=== PATIENT | female | born 1955 | race Caucasian/White ===

== ENCOUNTER 2017-05-17 13:50 | Outpatient (CLI) | payer OTHER | END 2017-05-17 13:51 | disposition home or self-care (01) | LOC: BICMAMMO 13:50 | PROVIDERS: ATTEND Internal Medicine | DX: Z12.31 Encounter for screening mammogram for malignant neoplasm of breast (principal) | CPT/HCPCS: 77063; 77067 ==

== ENCOUNTER 2017-06-10 15:54 | Outpatient (CLI) | payer OTHER ==
--- NOTE | 2017-06-10 16:34 | ULT ---
ULTRASOUND EVALUATION OF THE RIGHT INGUINAL REGION: INDICATION: Right inguinal palpable abnormality that comes and goes. The patient could not currently feel it at the time of the examination. FINDINGS: Ultrasound examination of the right inguinal region demonstrates no enlarged lymph nodes or soft tiss ue fluid collection. The vasculature within the right inguinal region appears within normal limits o n the kat scale images. IMPRESSION: No soft tissue mass identified. No lymphadenopathy is seen. An unencapsulated lipoma cannot be enti rely excluded within the right inguinal region. These can be poorly discerned on sonographic evaluat ion. If clinically indicated, further evaluation with MRI of the right inguinal region may be helpfu l for further evaluation. POS: [facility]
== END 2017-06-10 15:55 | disposition home or self-care (01) ==
LOC: ULT 15:54
PROVIDERS: ATTEND Internal Medicine
DX: R59.1 Generalized enlarged lymph nodes (principal)
CPT/HCPCS: 76999

== ENCOUNTER 2018-06-17 16:29 | Outpatient (CLI) | payer OTHER ==
--- NOTE | 2018-06-17 17:55 | RAD ---
THREE VIEWS RIGHT HAND: 06/17/18 HISTORY: Arthralgia of hand. AP, lateral, and oblique views right hand obtained. FINDINGS/IMPRESSION: Images demonstrate interphalangeal joint space narrowing involving the PIP and DIP joints of the seco nd, third, fourth and fifth digits. This is compatible with erosive osteoarthritis. POS: [facility]
--- NOTE | 2018-06-17 18:05 | RAD ---
LEFT HAND THREE VIEWS: 06/17/18 HISTORY: Left hand pain. Arthritis. FINDINGS: Significant loss of joint space throughout the interphalangeal joint and first carpometacarpal joint. Osteophytosis and subchondral sclerosis most pronounced at the first carpal metacarpal joint where s ubcortical cystic change is also present. Gull wing deformities involving the articular surfaces most pronounced at the distal interphalangeal joints of the index and middle fingers and the proximal int erphalangeal of the ring finger. Ulnar styloid is intact. No aggressive periarticular erosions are ap parent. Osseous structures are diffusely demineralized. 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 More typical osteoarthritic c hanges of the first carpometacarpal joint. POS: [facility]
== END 2018-06-17 16:30 | disposition home or self-care (01) ==
LOC: BICRAD 16:29
PROVIDERS: ATTEND Internal Medicine
DX: M25.541 Pain in joints of right hand (principal); M25.542 Pain in joints of left hand; M19.042 Primary osteoarthritis, left hand; M18.12 Unilateral primary osteoarthritis of first carpometacarpal joint, left hand; M25.841 Other specified joint disorders, right hand

== ENCOUNTER 2018-07-25 12:31 | Outpatient (CLI) | payer OTHER | END 2018-07-25 12:32 | disposition home or self-care (01) | LOC: ULT 12:31 | PROVIDERS: ATTEND Internal Medicine | DX: R01.1 Cardiac murmur, unspecified (principal); I08.1 Rheumatic disorders of both mitral and tricuspid valves; E78.5 Hyperlipidemia, unspecified; D64.9 Anemia, unspecified | CPT/HCPCS: 36415; 80061; 82607; 82728; 83540; 83550; 84443; 85025; 93306 ==

== ENCOUNTER 2019-05-15 12:47 | Outpatient (CLI) | payer OTHER ==
--- NOTE | 2019-05-15 14:55 | MRI ---
MRI LUMBAR SPINE WITHOUT CONTRAST: HISTORY: M54.16, radiculopathy. COMPARISON: None. FINDINGS: The background marrow signal is normal without marrow infiltrative process. Modic type I end plate c hanges of L4-5. There is intraosseous hemangioma of L4 vertebral body. The aortic contour is nonaneurysmal. No significant perirenal edema. Paraspinal musculature is symm etric. The conus medullaris terminates near the inferior end plate of L1. Levels are as follows: T12-L1: There is a broad-based disk bulge posteriorly. Mild hypertrophic disk arthrosis. There is effacement of the ventral CSF space without cortical abnormality. The spinal canal measures approxim ately 9 mm. L1-2: Mild disk height without significant disk space desiccation. No neural foraminal or spinal ca nal narrowing. L2-3: There is mild disk desiccation. Low-grade circumferential disk bulge. Mild hypertrophic face t arthrosis. Mild bilateral neural foraminal narrowing. L3-4: Mild degenerative disk space height loss. There are large facet osteophytes. Circumferential disk-osteophyte causes moderate to severe left and moderate right neural foraminal narrowing with ab utment of both left exiting traversing nerve roots and a the right traversing nerve root. L4-5: Moderate degenerative disk space height loss. Circumferential disk bulge with central annular fissure. Moderate hypertrophic facet arthrosis. There is moderate to severe right and moderate lef t neural foraminal narrowing with abutment of both exiting nerve roots. There is abutment of the rig ht traversing nerve root. L5-S1: Mild degenerative disk space height loss. Circumferential disk space height loss. Disk nicholas ccation. Circumferential disk bulge causes moderate bilateral neural foraminal narrowing, mild hyper trophic facet arthropathy causing abutment of both the right S1 and left S1 nerve roots. IMPRESSION: 1. Spondylosis as described. 2. No acute fracture of the lumbar spine. POS: [facility]
--- NOTE | 2019-05-15 15:36 | MMO ---
Bilateral MAMMO Bilat Screen [facility]. CLINICAL HISTORY: Patient is 64 years old and is seen for screening. The patient has a history of right Excisional Biopsy in 2006 - benign. VIEWS: The views performed were: . FILMS COMPARED: The present examination has been compared to prior imaging studies performed at [facility] on 05/20/2013, 05/21/2014 and 05/17/2017, and at [facility] on 01/06/2016. This study has been interpreted with the assistance of computer-aided detection. MAMMOGRAM FINDINGS: The breasts are heterogeneously dense, which could obscure a lesion on mammography. Finding 1: There are benign appearing and vascular calcifications seen in both breasts. Finding 2: There is a post-surgical scar seen in the right breast. There are no suspicious masses, suspicious calcifications, or new areas of architectural distortion. IMPRESSION: THERE IS NO MAMMOGRAPHIC EVIDENCE OF MALIGNANCY. A ROUTINE FOLLOW-UP MAMMOGRAM IN 1 YEAR IS RECOMMENDED. THE RESULTS OF THIS EXAM WERE SENT TO THE PATIENT. ACR BI-RADS Category 2 - Benign finding MAMMOGRAPHY NOTE: 1. A negative mammogram report should not delay a biopsy if a dominant of clinically suspicious mass is present. 2. Approximately 10% to 15% of breast cancers are not detected by mammography. 3. Adenosis and dense breasts may obscure an underlying neoplasm. Reported by: SHAHRAM ROSARIO MD Electonically Signed: [id number]
== END 2019-05-15 12:48 | disposition home or self-care (01) ==
LOC: BICMRI 12:47
PROVIDERS: ATTEND Anesthesiology Pain Medicine
DX: Z12.31 Encounter for screening mammogram for malignant neoplasm of breast (principal); M47.26 Other spondylosis with radiculopathy, lumbar region; M47.27 Other spondylosis with radiculopathy, lumbosacral region; Z91.89 Other specified personal risk factors, not elsewhere classified
CPT/HCPCS: 72148; 77063; 77067

== ENCOUNTER 2020-12-08 | Outpatient (CLI) | payer OTHER | END 2020-12-08 07:55 | disposition home or self-care (01) | DX: M16.12 Unilateral primary osteoarthritis, left hip (principal) ==

== ENCOUNTER 2020-12-09 13:08 | Outpatient (CLI) | payer OTHER | END 2020-12-09 13:09 | disposition home or self-care (01) | LOC: BICMRI 13:08 | PROVIDERS: ATTEND Anesthesiology Pain Medicine | DX: M51.16 Intervertebral disc disorders with radiculopathy, lumbar region (principal); M54.14 Radiculopathy, thoracic region; Z98.890 Other specified postprocedural states | CPT/HCPCS: 72148 ==

== ENCOUNTER 2021-05-05 13:41 | Outpatient (CLI) | payer BC, OTHER | END 2021-05-05 13:42 | disposition home or self-care (01) | LOC: BICMAMMO 13:41 | PROVIDERS: ATTEND Internal Medicine | DX: Z12.31 Encounter for screening mammogram for malignant neoplasm of breast (principal); Z13.820 Encounter for screening for osteoporosis; M85.89 Other specified disorders of bone density and structure, multiple sites; Z78.0 Asymptomatic menopausal state; Z91.89 Other specified personal risk factors, not elsewhere classified | CPT/HCPCS: 77063; 77067; 77080 ==

== ENCOUNTER 2023-06-14 10:21 | Outpatient (CLI) | payer MEDICARE, BC | END 2023-06-14 10:22 | disposition home or self-care (01) | LOC: BICMAMMO 10:21 | PROVIDERS: ATTEND Internal Medicine | DX: Z12.31 Encounter for screening mammogram for malignant neoplasm of breast (principal); Z91.89 Other specified personal risk factors, not elsewhere classified | CPT/HCPCS: 77063; 77067 ==